=== PATIENT | female | born 1975 | race Two or more races ===

== ENCOUNTER 2023-02-09 09:39 | Inpatient (IN) | payer SELFPAY ==
[~2023-02-09] VITALS: Ht 150 cm; Wt 60.0 kg
[2023-02-10] MEDS ORDERED: LISINOPRIL 10 MG TAB PO SCH (10:00)
== END 2023-02-09 12:48 | disposition home or self-care (01) | DRG 203 ==
LOC: EAST 09:39
PROVIDERS: ADMIT Internal Medicine Geriatric Medicine; ATTEND Internal Medicine Geriatric Medicine
DX: J45.909 Unspecified asthma, uncomplicated (principal)
CPT/HCPCS: 36415; 82565; 84132; G0378